=== PATIENT | female | born 1975 | race Caucasian/White ===

== ENCOUNTER → 2016-04-06 | Outpatient (CLI) | payer BC ==
[~2016-04-06] MED LIST: AMOX500C2 PO; DESV50TA PO; ESTR-44; FLUO20CA25; HYDR-3583 PO; HYDR-757 PO
--- OUTSIDE RECORDS SUMMARY | 2016-04-06 11:41 | XMS REPORT | Continuity of Care Document ---
Author Author [facility] Organization [facility] Address Unknown Phone Unavailable Allergies Active Description Code Type Severity Reaction Onset Reported/Identified Relationship to Patient Clinical Status Yes SILK TAPE SILK TAPE Unknown BLISTERS AND IT 03/13/2010 Medications Problems Date Dx Coded Attending Type Code Diagnosis Diagnosed By 03/24/2010 Ot 618.2 03/24/2010 Ot 626.2 11/18/2010 Ot 287.5 11/18/2010 Ot 288.00 05/15/2014 LEE ANN LOZANO, ABDIRAHMAN Beltran Ot V76.12 06/22/2014 LEE ANN LOZANO, ABDIRAHMAN Beltran Ot V76.12 04/28/2015 ELLIE WASHINGTON DEVELOPMENT EXPERT Ot S86.111A STRAIN MUSC/TEND POST GRP AT LOW LEG LEV 04/28/2015 ELLIE WASHINGTON DEVELOPMENT EXPERT Ot Y93.59 ACTIVITY, OTH W OTH SPORTS AND ATHLETICS 04/28/2015 ELLIE WASHINGTON DEVELOPMENT EXPERT Ot Y99.8 OTHER EXTERNAL CAUSE STATUS 04/28/2015 Ot V43.82 04/28/2015 Ot V76.12 04/28/2015 Ot 618.1 04/28/2015 Ot V72.63 04/28/2015 Ot V74.8 04/28/2015 Ot 287.5 04/28/2015 Ot 288.50 04/28/2015 Ot V45.77 04/28/2015 Ot V58.69 04/28/2015 Ot 287.5 04/28/2015 Ot 288.50 04/28/2015 Ot 719.45 04/28/2015 Ot 729.5 04/28/2015 Ot 287.5 04/28/2015 Ot 288.00 04/28/2015 Ot 625.9 04/28/2015 Ot V45.77 04/28/2015 LEE ANN LOZANO, ABDIRAHMAN Beltran Ot V76.12 04/30/2015 ELLIE WASHINGTON APRN Ot S86.111A 04/30/2015 ELLIE WASHINGTON DEVELOPMENT EXPERT Ot Y93.59 04/30/2015 ELLIE WASHINGTON DEVELOPMENT EXPERT Ot Y99.8 05/22/2015 ELLIE WASHINGTON DEVELOPMENT EXPERT Ot S86.111A 05/22/2015 ELLIE WASHINGTON DEVELOPMENT EXPERT Ot Y93.59 05/22/2015 ELLIE WASHINGTON DEVELOPMENT EXPERT Ot Y99.8 Procedures Results Encounters ACCT No. Visit Date/Time Discharge Status Pt. Type Provider Facility Loc./Unit Complaint [id number] 04/28/2015 13:09:00 2015 14:34:00 DIS Emergency ELLIE WASHINGTON APRN [facility] ER [id number] 05/14/2014 09:47:00 2014 23:59:59 CLS Outpatient LEE ANN LOZANO, ABDIRAHMAN Beltran [facility] RAD [id number] 03/28/2012 10:36:00 Document Registration [id number] 11/19/2010 00:00:00 Document Registration [id number] 09/10/2010 15:07:00 Document Registration [id number] 09/10/2010 13:34:00 Document Registration [id number] 08/13/2010 12:51:00 Document Registration [id number] 08/05/2010 12:16:00 Document Registration [id number] 03/21/2010 05:37:00 Document Registration [id number] 03/13/2010 09:10:00 Document Registration [id number] 03/13/2010 08:59:00 Document Registration
--- NOTE | 2016-04-06 15:00 | Diagnostic Imaging Report ---
INDICATION: Pain and swelling of the hand. Neck pain for months. No known injury.. TECHNIQUE: AP, lateral and odontoid views cervical spine.. CORRELATION STUDY: None FINDINGS: Cervical spinal alignment anatomic. There is a fusion across C2-C3 vertebral bodies and partial fusion across the facet joints. Asymmetric disc space narrowing, C5-C6 level. Prominent endplate osteophyte formation extending posteriorly at the C5 level. Prominent ossification anteriorly as well as well as minimal ossification along the anterior longitudinal ligament at this level. Odontoid unremarkable. Prevertebral soft tissues appearing unremarkable. IMPRESSION: Asymmetric areas of degenerative changes about the cervical spine most noticeable at C5-C6 level. Mild endplate osteophyte formation may predispose to minimal foraminal and/or canal narrowing. If further assessment is desired, CT and/or MRI would be recommended. Dictated by: Dictated on workstation # [id number]
--- NOTE | 2016-04-06 15:49 | Diagnostic Imaging Report ---
INDICATION: Pain and swelling third digit left hand. TECHNIQUE: AP view left hand with oblique and lateral view left middle finger 12:15 p.m. CORRELATION STUDY: None FINDINGS: There is asymmetric soft tissue swelling at the proximal interphalangeal joint of the middle finger. Underlying osseous structures appear to be intact. Alignment anatomic. There is minimal ossification noted about the distal volar aspect of the proximal phalanx. Remaining limited visualization of osseous structures of left hand appears to be intact and otherwise unremarkable. Joint spaces overall are maintained. IMPRESSION: 1. Negative for acute bony abnormality of left hand with attention to the left middle finger. Dictated by: Dictated on workstation # [id number]
== END ==
LOC: RAD 11:35
PROVIDERS: ATTEND Family Medicine
DX: M54.2 Cervicalgia (principal); R22.32 Localized swelling, mass and lump, left upper limb
CPT/HCPCS: 72040; 73140

== ENCOUNTER → 2017-03-11 | Outpatient (CLI) | payer BC ==
--- NOTE | 2017-03-11 12:38 | Diagnostic Imaging Report ---
INDICATION: Lump in the right posterior scalp. TECHNIQUE: Sonographic interrogation in the area of palpable lump was performed. FINDINGS: There is an ovoid hypoechoic nodule at this location measuring 2.3 x 0.4 x 1.4 cm. This has the appearance of a lymph node. No other abnormality is seen. IMPRESSION: Probable lymph node at the area of palpable abnormality. Continued clinical followup to confirm stability is recommended. Dictated by: Dictated on workstation # [id number]
== END ==
LOC: RAD 11:56
PROVIDERS: ATTEND Surgery
DX: R22.0 Localized swelling, mass and lump, head (principal)
CPT/HCPCS: 76536

== ENCOUNTER 2017-03-19 05:30 | Outpatient (CLI) | payer BC ==
[~2017-03-19] VITALS: Ht 170.2 cm; Wt 68.0 kg
[2017-03-19] MEDS ORDERED: FLUO20CA42 PO (11:43)
[2017-03-19] MEDS ORDERED: ESTR1TAB27 PO (11:43)
== END 2017-03-19 11:52 ==
LOC: PREOP 05:30
PROVIDERS: ATTEND Surgery
DX: Z01.818 Encounter for other preprocedural examination (principal); R22.0 Localized swelling, mass and lump, head

== ENCOUNTER 2022-12-03 12:30 | Emergency (ER) | payer OTHER ==
[~2022-12-03] VITALS: Ht 172.7 cm; Wt 71.6 kg
[~2022-12-03 12:30] MED LIST changes: +ACHD5005 PO; +ESTR1TAB27 PO; -FLUO20CA25; +FLUO20CA42 PO; +FLUO20CA48; +HYDR-4226 PO; -HYDR-757 PO
--- NOTE | 2022-12-03 12:57 | ED Back Pain ---
General Chief Complaint: Trauma-Non Activation Stated Complaint: FALL AT WORK | LOWER BACK PAIN | RT SHOULDER PAIN Source of Information: Patient Exam Limitations: No Limitations History of Present Illness Date Seen by Provider: Dec 03, 2022 Time Seen by Provider: 12:53 Initial Comments Patient is a 47-year-old female who presents ED with right shoulder pain and lower back pain. She states 1 hour ago she fell through a ceiling at work. She states she was attempting to get a [employer] cable. She states she was leaning forward fell through the tile ceiling landing on a table on her lower back and right pelvis. She states she did hit her right shoulder but only has pain with certain movements. Appears to be more in the posterior right shoulder. She denies hitting her head or loss of consciousness, cervical neck pain. She stat es she is near pain-free while sitting but reports pain 12 out of 10 with walking. Denies taking anything for pain. She denies of any distal numbness and tingling, bowel or urine incontinence or saddle paresthesia. She denies landing directly on her feet but kind of landed on her lower back and right side. She is able to ambulate. Denies fever chills vomiting diarrhea chest pa in short of breath abdominal pain. She does have abrasion to the left knee but denies of any specific pain. Denies of any bruising or swelling that she can note up. Allergies and Home Medications Allergies Uncoded Allergies: SILK TAPE (Allergy, Unknown, BLISTERS AND ITCHING, 03/24/17) Patient Home Medication List Home Medication List Reviewed: Yes Estradiol (Estrace Tablet) 1 Mg Tablet, 1 MG PO DAILY, (Reported) Entered as Reported by: AMELIE JONES on 03/19/17 1143 Fluoxetine HCl (Prozac) 20 Mg Capsule, 20 MG PO DAILY, (Reported) Entered as Reported by: AMELIE JONES on 03/19/17 1143 Hydrocodone Bit/Acetaminophen (Lortab 5 Mg Tablet) 1 Tab Tab, 1-2 TAB PO 4-6HR PRN for PAIN Prescribed by: RAMBO LOPEZ on 03/24/17 8886 Review of Systems Constitutional: No chills, No diaphoresis, No malaise, No weakness EENTM: No ear pain, No blurred vision, No double vision Respiratory: No cough, No dyspnea on exertion Cardiovascular: No chest pain Gastrointestinal: No abdominal pain, No diarrhea, No nausea, No vomiting Genitourinary: No decreased output, No discharge, No dysuria, No frequency Musculoskeletal: back pain, joint pain, muscle pain, muscle stiffness Skin: No change in color, No change in hair/nails Psychiatric/Neurological: Denies Anxiety, Denies Depressed All Other Systems Reviewed Negative Unless Noted: Yes Past Ivzvrbl-Itrqkg-Orsxqi Hx Immunizations Up To Date Tetanus Booster (TDap): Unknown PED Vaccines UTD: No Seasonal Allergies Seasonal Allergies: No Past Medical History Hysterectomy Reproductive Disorders: No 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 0.0oz. 68.304083bt; 23.5 BMI Method:Stated General Appearance: No Apparent Distress, WD/WN HEENT: PERRL/EOMI, TMs Normal, Normal ENT Inspection, Pharynx Normal Neck: Full Range of Motion, Normal Inspection, Non Tender, Supple, Other (No cervical midline tenderness) Cardiovascular: Regular Rate, Rhythm, No Edema, No Gallop, No Murmur Respiratory: Chest Non Tender, Lungs Clear, Normal Breath Sounds, No Accessory Muscle Use Gastrointestinal: Normal Bowel Sounds, No Organomegaly, No Pulsatile Mass, Non Tender, Soft Back: Other (Lower lumbar midline tenderness, right lumbar pelvic tenderness. Tailbone tenderness. Mild bruising and swelling to the right lateral posterior pelvis.) Extremity: Other (Small abrasion to left anterior knee with no tenderness. Normal active range of motion of the knee bilateral. Neurovascular intact bilateral lower extremity. No calcaneus tenderness bilateral. Mild tenderness to the right posterior upper trapezius. Normal active range of motion of the right shoulder. Neurovascular intact. 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 She fell 1 hour before arrival landing on her right side. Fell through a tile ceiling landed on her right posterior hip and lower back. This was about 8 feet. She states she did hit her knees while coming down on the table and chairs. Denies hitting her head or loss of conscious, chest pain or abdominal pain. Exam with lower lumbar midline tenderness, right pelvic posterior hip tenderness. She has no focal neural deficits. Abrasion to left knee. She has right posterior shoulder tenderness along the musculature of the upper back. She has no cervical, thoracic midline tenderness. No evidence of head trauma. Neuro exam unremarkable. Patient appears in no acute distress. She refused anything for pain. She is able to ambulate. Her exam of her right shoulder was grossly unremarkable. No evidence of weakness. She refused imaging but this appears to be more muscular strain. Adequate range of motion of the right shoulder without pain. No bruising or swelling. CT scan the lumbar and pelvis was ordered. CT scans were unremarkable. Discussed these results with patient. Concern for more muscle strain at this time secondary to the fall. Suggest continue monitoring symptoms at home. If any worsening pain vomiting severe headache, unilateral weakness or sensory changes bowel or urine incontinence to return back to ED. Anti- inflammatories for pain. Provided work note Impression Primary Impression: Low back pain Additional Impression: Shoulder pain Disposition: 01 HOME, SELF-CARE Condition: Stable Departure-Patient Inst. Decision time for Depature: 13:52 Referrals: VEENA ROTH APRN (PCP/Family) Primary Care Physician Patient Instructions: Low Back Pain ED Add. Discharge Instructions: Recommend rest, ice anti-inflammatories. If any worsening symptoms such as bowel or urine incontinence, saddle paresthesia, lower extremity weakness return back to ED. All discharge instructions reviewed with patient and/or family. Voiced understanding. RADHIKA MURPHY Dec 03, 2022 12:57
--- NOTE | 2022-12-03 13:36 | Diagnostic Imaging Report ---
EXAMINATION: CT lumbar spine without contrast. TECHNIQUE: Multiple contiguous axial images were obtained through the lumbar spine without the use of intravenous contrast. Sagittal and coronal reformations were then performed. All CT scans use one or more of the following dose optimizing techniques: automated exposure control, MA and/or KvP adjustment based on patient size and exam type or iterative reconstruction. HISTORY: Low back pain after fall COMPARISON: None available. FINDINGS: The alignment of the lumbar spine is normal. Vertebral body heights are normal and no fracture is seen. Facet joints are normal. There is degenerative disc disease with disc narrowing and small disc bulge at L5-S1. There may be up to moderate central canal stenosis at this level. There is moderate bilateral neural foraminal stenosis likely as well. Limited views of the abdomen and pelvis show no soft tissue abnormality. The aorta is normal. IMPRESSION: 1. Degenerative changes of the lumbar spine without acute osseous abnormality. Dictated by: Dictated on workstation # [id number]
--- NOTE | 2022-12-03 13:38 | Diagnostic Imaging Report ---
PROCEDURE: CT pelvis without contrast. TECHNIQUE: Multiple contiguous axial images were obtained through the pelvis without the use of intravenous contrast. Sagittal and coronal reformations were performed. Auto Exposure Controls were utilized during the CT exam to meet ALARA standards for radiation dose reduction. INDICATION: Fall with low back and pelvic pain. FINDINGS: There is marked narrowing of the L5-S1 disc with subchondral sclerosis and associated endplate spurring. This does result in bilateral neural foraminal stenoses. There has been prior surgery in the inguinal regions. No hernia is identified. There is no evidence of an acute fracture. No subluxation is seen. There is no significant hematoma or hemoperitoneum identified. IMPRESSION: No acute abnormality is detected. Dictated by: Dictated on workstation # [id number]
[2022-12-03 13:54] VITALS: BP 115/83
== END 2022-12-03 14:03 | disposition home or self-care (01) ==
LOC: EDUNIT# 12:30 → ER 12:34
DX: S80.212A Abrasion, left knee, initial encounter (principal); M54.50 Low back pain, unspecified; M25.511 Pain in right shoulder; W18.30XA Fall on same level, unspecified, initial encounter; W22.8XXA Striking against or struck by other objects, initial encounter; Y92.59 Other trade areas as the place of occurrence of the external cause; Y99.0 Civilian activity done for income or pay
CPT/HCPCS: 72131; 72192